=== PATIENT | female | born 1955 | race Two or more races ===

== ENCOUNTER → 2018-04-20 | Outpatient (CLI) | payer OTHER | END | disposition home or self-care (01) | LOC: LAB 07:32 | DX: R10.2 Pelvic and perineal pain (principal); E78.2 Mixed hyperlipidemia ==

== ENCOUNTER → 2020-09-14 | Emergency (ER) | payer OTHER ==
[~2020-09-14] VITALS: Ht 162.6 cm; Wt 88.0 kg
[~2020-09-14] MED LIST: BACTRIM DS TAB1 EACH PO; MONTELUKAST SOD10 MG PO; SYNTHROID137 MCG PO; URETRON D-S TAB1 TAB PO
== END | disposition home or self-care (01) ==
LOC: ER 10:29
DX: R30.0 Dysuria (principal); Z20.822 Contact with and (suspected) exposure to COVID-19

== ENCOUNTER 2020-11-08 17:09 | Emergency (ER) | payer OTHER ==
[~2020-11-08] VITALS: Ht 162.6 cm; Wt 81.6 kg
== END 2020-11-08 20:09 | disposition home or self-care (01) ==
LOC: ER 17:09
DX: S61.022A Laceration with foreign body of left thumb without damage to nail, initial encounter (principal); S61.221A Laceration with foreign body of left index finger without damage to nail, initial encounter; W27.2XXA Contact with scissors, initial encounter; Y93.89 Activity, other specified; Y92.89 Other specified places as the place of occurrence of the external cause; Y99.8 Other external cause status

== ENCOUNTER 2020-11-14 17:28 | Emergency (ER) | payer OTHER ==
[~2020-11-14] VITALS: Ht 162.6 cm; Wt 83.9 kg
[2020-11-14] MEDS ORDERED: MONTELUKAST (17:43)
== END 2020-11-14 18:18 | disposition home or self-care (01) ==
LOC: ER 17:28
DX: Z48.02 Encounter for removal of sutures (principal)

== ENCOUNTER 2024-08-19 11:47 | Outpatient (CLI) | payer OTHER ==
[~2024-08-19 11:47] MED LIST changes: +MONTELUKAST
== END 2024-08-19 11:53 | disposition home or self-care (01) ==
LOC: MAMO-SONO 11:47
PROVIDERS: ATTEND Obstetrics & Gynecology Maternal & Fetal Medicine
DX: N63 Unspecified lump in breast (principal); Z12.31 Encounter for screening mammogram for malignant neoplasm of breast; N64.4 Mastodynia; N60.11 Diffuse cystic mastopathy of right breast

== ENCOUNTER 2024-12-28 11:20 | Outpatient (CLI) | payer OTHER | END 2024-12-28 11:27 | disposition home or self-care (01) | LOC: RAD 11:20 | PROVIDERS: ATTEND Specialist | DX: Z01.818 Encounter for other preprocedural examination (principal) ==

== ENCOUNTER 2025-07-29 10:20 | Outpatient (CLI) | payer OTHER | END 2025-07-29 10:28 | disposition home or self-care (01) | LOC: RAD 10:20 | DX: R07.1 Chest pain on breathing (principal); R50.9 Fever, unspecified ==